=== PATIENT | male | born 1975 | race Caucasian/White ===

== ENCOUNTER 2019-02-20 06:02 | Emergency (ER) | payer OTHER ==
[~2019-02-20] VITALS: Ht 172.7 cm; Wt 99.8 kg
[~2019-02-20 06:02] MED LIST: AMITRIPTYLINE; BRINTELLIX10 MG PO; BUSPIRONE HCL7.5 MG; FLEXERIL PO; FLOMAX0.4 MG PO; HYDROCODON-ACE1 EAC7 PO; HYDROXYCUT; LEVAQUIN 500 M500 M2 PO; PERCOCET 7.5-31 EACH PO; PERCOCET PO; PYRIDIUM100 M1 PO; VALIUM5 MG PO; WELCHOL
[2019-02-20] MEDS ORDERED: HYDROCODON-ACE1 EAC8 PO (06:12)
[2019-02-20] MEDS ORDERED: [UNRECOGNIZED DRUG - OTHER] (06:14)
[2019-02-20] MEDS ORDERED: ANASPAZ0.125 MG SUBLING (06:15)
[2019-02-20 06:52] LABS: ABSOLUTE EOSINOPHILS 0.2 thou/uL (0.0-0.7); ABSOLUTE LYMPHOCYTES 0.9 thou/uL (0.8-5.3); ABSOLUTE MONOCYTES 0.9 thou/uL (0.0-1.2); ABSOLUTE NEUTROPHILS 6.9 thou/uL (1.6-8.1); BASOPHILS 0.5 %; EOSINOPHILS 2.2 %; HEMATOCRIT 43.8 % (42.0-52.0); LYMPHOCYTES 10.1 %; MCH 31.8 pg (26.0-34.0); MCHC 34.3 g/dL (28.0-37.0); MCV 92.8 fL (80.0-100.0); MONOCYTES 9.9 %; MPV 8.7 fl. (7.2-11.1); NUCLEATED RBCS 0 /100WBC; PLATELET COUNT* 205 thou/uL (150-400); POLYS 77.3 %; RBC 4.72 mil/uL (4.50-6.00); RDW-CV 13.3 % (10.5-14.5)
[2019-02-20 06:54] LABS: URINE BILIRUBIN NEGATIVE (Negative); URINE BLOOD NEGATIVE (Negative); URINE CLARITY CLEAR; URINE COLOR YELLOW; URINE GLUCOSE-RANDOM NEGATIVE (Negative); URINE KETONES NEGATIVE (Negative); URINE LEUKOCYTES-REFLEX NEGATIVE (Negative); URINE NITRITE-REFLEX NEGATIVE (Negative); URINE PROTEIN NEGATIVE (Negative); URINE SPECIFIC GRAVITY 1.015 (1.005-1.030); URINE UROBILINOGEN 0.2 E.U./dl (0.2-1.0)
[2019-02-20 06:59] LABS: CALCIUM 9.2 mg/dL (8.5-10.1); CREATININE 1.3 mg/dL (0.6-1.3); POTASSIUM 4.2 mmol/L (3.5-5.1)
[2019-02-20 07:03] LABS: ALBUMIN 3.9 g/dL (3.4-5.0); TOTAL BILIRUBIN 0.5 mg/dL (<0.1-1.0); TOTAL PROTEIN 7.6 g/dL (6.4-8.2)
[2019-02-20] MEDS ORDERED: CIPROFLOXACIN500 M1 PO (07:57)
[2019-02-20 08:02] VITALS: BP 133/93
== END 2019-02-20 08:03 | disposition still patient (30) ==
LOC: M.ERS 06:02
PROVIDERS: Emergency Medicine
DX: N41.9 Inflammatory disease of prostate, unspecified (principal); N39.0 Urinary tract infection, site not specified; J45.909 Unspecified asthma, uncomplicated; Z91.041 Radiographic dye allergy status; Z88.5 Allergy status to narcotic agent; Z88.6 Allergy status to analgesic agent

== ENCOUNTER 2019-08-19 17:58 | Emergency (ER) | payer OTHER ==
[~2019-08-19] VITALS: Ht 172.7 cm; Wt 99.8 kg
[~2019-08-19 17:58] MED LIST changes: +ANASPAZ0.125 MG SUBLING; +CIPROFLOXACIN500 M1 PO; +HYDROCODON-ACE1 EAC8 PO; +[UNRECOGNIZED DRUG - OTHER]
[2019-08-19] MEDS ORDERED: [UNRECOGNIZED DRUG - OTHER] PO (18:09)
[2019-08-19] MEDS ORDERED: PHENAZOPYRIDIN200 M2 PO (18:10)
[2019-08-19] MEDS ORDERED: FLEXERIL PO (19:36)
[2019-08-19] MEDS ORDERED: MEDROLDOSEPACK PO (19:36)
[2019-08-19 19:43] VITALS: BP 154/97
== END 2019-08-19 19:43 | disposition home or self-care (01) ==
LOC: M.ERS 17:58
DX: S70.11XA Contusion of right thigh, initial encounter (principal); S80.211A Abrasion, right knee, initial encounter; M54.2 Cervicalgia; J45.909 Unspecified asthma, uncomplicated; Z91.041 Radiographic dye allergy status; Z88.6 Allergy status to analgesic agent; Z88.8 Allergy status to other drugs, medicaments and biological substances; V89.2XXA Person injured in unspecified motor-vehicle accident, traffic, initial encounter; Y93.89 Activity, other specified; Y92.89 Other specified places as the place of occurrence of the external cause; Y99.8 Other external cause status

== ENCOUNTER → 2021-07-14 | Outpatient (CLI) | payer OTHER ==
[~2021-07-14] MED LIST changes: +MEDROLDOSEPACK PO; +PHENAZOPYRIDIN200 M2 PO; +[UNRECOGNIZED DRUG - OTHER] PO
== END ==
LOC: M.CT 08:00
PROVIDERS: ATTEND Family Medicine
DX: Z13.6 Encounter for screening for cardiovascular disorders (principal); I25.10 Atherosclerotic heart disease of native coronary artery without angina pectoris